=== PATIENT | male | born 1960 | race Caucasian/White ===

== ENCOUNTER 2017-04-27 16:26 | Emergency (ER) | payer OTHER ==
[2017-04-27 16:32] VITALS: BP 138/99
--- NOTE | 2017-04-27 16:33 | UC ---
Upper Extremity HPI - HPI Summary HPI Summary: 56 YEAR OLD MALE PRESENTS WITH COMPLAINS OF SEVERE RIGHT THUMB LACERATION EXTENDING INTO THE TENDON. I WILL SEND HIM TO THE ED. - History of Current Complaint Chief Complaint: UCLaceration Stated Complaint: THUMB INJURY Time Seen by Provider: 04/27/17 16:33 Hx Obtained From: Patient Onset/Duration: Sudden Onset Severity Initially: Moderate Severity Currently: Moderate Character: Throbbing Aggravating Factor(s): Movement - Allergies/Home Medications Allergies/Adverse Reactions: Allergies Allergy/AdvReac Type Severity Reaction Status Date / Time Penicillins Allergy Unknown Verified 04/27/17 17:20 Reaction Details Home Medications: Home Medications Gout Medication ? Name 04/27/17 [History] PMH/Surg Hx/FS Hx/Imm Hx Previously Healthy: Yes - Surgical History Surgical History: None - Family History Known Family History: Positive: None - Social History Alcohol Use: Occasionally Substance Use Type: None Smoking Status (MU): Never Smoked Tobacco Review of Systems Constitutional: Other - LACERATION OF RIGHT THUMB Skin: Negative Eyes: Negative ENT: Negative Respiratory: Negative Cardiovascular: Negative Gastrointestinal: Negative Genitourinary: Negative Motor: Negative Neurovascular: Negative Musculoskeletal: Negative Neurological: Negative Psychological: Negative All Other Systems Reviewed And Are Negative: Yes Physical Exam Triage Information Reviewed: Yes Vital Signs: Initial Vital Signs Temp 36.7 C 04/27/17 16:29 Pulse 100 04/27/17 16:29 Resp 18 04/27/17 16:29 BP 138/99 04/27/17 16:29 Pulse Ox 100 04/27/17 16:29 Eye Exam: Normal ENT Exam: Normal Dental Exam: Normal Neck exam: Normal Neck: Positive: 1 Respiratory Exam: Normal Cardiovascular Exam: Normal Abdominal Exam: Normal Musculoskeletal Exam: Normal Neurological Exam: Normal Psychological Exam: Normal Skin: Positive: Other - RIGHT THUMB LACERATION Upper Extremity Course/Dx - Differential Dx/Diagnosis Provider Diagnoses: RIGHT THUMB LACERATION Discharge - Discharge Plan Condition: Stable Disposition: HOME Patient Education Materials: Laceration (ED) Referrals: Tutu Hidalgo MD [Primary Care Provider] - Additional Instructions: PLEASE GO TO ER FOR RIGHT THUMB LACERATION.
== END 2017-04-27 17:06 | disposition home or self-care (01) ==
LOC: UCEAST 16:26
DX: S61.011A Laceration without foreign body of right thumb without damage to nail, initial encounter (principal); W45.8XXA Other foreign body or object entering through skin, initial encounter; Z88.0 Allergy status to penicillin
CPT/HCPCS: 99201; G0463

== ENCOUNTER 2017-04-27 17:17 | Emergency (ER) | payer OTHER ==
[2017-04-27] MEDS ORDERED: Lidocaine 1% MPF* 2 ML VIAL INJ ONE (20:23)
[2017-04-27] MEDS ORDERED: Lidocaine 1%* 5 ML VIAL ONE (20:24)
--- NOTE | 2017-04-27 20:55 | ED ---
Laceration/Wound HPI - HPI Summary HPI Summary: Patient presents to the ED from [facility] for laceration to the webbing of the thenar space of the left hand from a hose handle. Tetanus UTD x 6 years ago. Otherwise healthy. Full ROM without compromise. Pulses +2 bilaterally and cap refill < 2 sec. [facility] cleaned the area well per patient. He was irrigated with jet irrigation and soaked x 10 minutes in soap and water. Full ROM tested and no concern for tendon involvement. There is no erythema, warmth or tenderness to palpation around the laceration. The lac is irregular measuring 4.5cm. Bleeding is controlled and patient denies blood thinners. No numbness or tingling in the thumb. Pinprick test performed with no abnormalities. - History of Current Complaint Stated Complaint: CUT ON LT HAND-SENT FROM Time Seen by Provider: 04/27/17 18:43 Hx Obtained From: Patient Mechanism of Injury: Sharp/Blunt Trauma Onset/Duration: Sudden Onset Aggravating: Movement Alleviating: Compression Timing: Constant Onset Severity: Mild Current Severity: Mild Pain Intensity: 4 Pain Scale Used: 0-10 Numeric Associated Signs & Symptoms: Negative Related Hx: Dominant Hand (Right) - Additional Pertinent History Referred By: Other - [facility] - Allergy/Home Medications Allergies/Adverse Reactions: Allergies Allergy/AdvReac Type Severity Reaction Status Date / Time Penicillins Allergy Unknown Verified 04/27/17 17:20 Reaction Details PMH/Surg Hx/FS Hx/Imm Hx Previously Healthy: Yes - Immunization History Hx Pertussis Vaccination: No Immunizations Up to Date: Unable to Obtain/Confirm Infectious Disease History: No Infectious Disease History: Denies: Traveled Outside the [place] in Last 30 Days - Social History Occupation: Employed Full-time Lives: With Family Alcohol Use: Occasionally Hx Substance Use: No Substance Use Type: Reports: None Hx Tobacco Use: No Smoking Status (MU): Never Smoked Tobacco Review of Systems Constitutional: Negative Negative: Fever, Fatigue Eyes: Negative Cardiovascular: Negative Respiratory: Negative Genitourinary: Negative Positive: Arthralgia, Myalgia Positive: Other - 4.5cm laceration to the webbing of the thenar space of the left hand Negative: Weakness, Paresthesia Psychological: Normal All Other Systems Reviewed And Are Negative: Yes Physical Exam Triage Information Reviewed: Yes Vital Signs On Initial Exam: Initial Vitals Temp Pulse Resp BP Pulse Ox 98.1 F 94 16 134/97 100 04/27/17 17:20 04/27/17 17:20 04/27/17 17:20 04/27/17 17:20 04/27/17 17:20 Vital Signs Reviewed: Yes Appearance: Positive: Well-Appearing, Well-Nourished Skin: Positive: Warm, Skin Color Reflects Adequate Perfusion Head/Face: Positive: Normal Head/Face Inspection Eyes: Positive: EOMI, AWA, Conjunctiva Clear Respiratory/Lung Sounds: Positive: Clear to Auscultation, Breath Sounds Present Cardiovascular: Positive: RRR Musculoskeletal: Positive: Strength/ROM Intact Neurological: Positive: Speech Normal Psychiatric: Positive: Normal AVPU Assessment: Alert - [place] Coma Scale Best Eye Response: 4 - Spontaneous Best Motor Response: 6 - Obeys Commands Best Verbal Response: 5 - Oriented Diagnostics - Vital Signs Vital Signs Temp Pulse Resp BP Pulse Ox 04/27/17 18:53 98.4 F 85 16 171/98 100 04/27/17 17:20 98.1 F 94 16 134/97 100 - Laboratory Lab Statement: Any lab studies that have been ordered have been reviewed, and results considered in the medical decision making process. Laceration Repair Course/Dx - Course Course Of Treatment: Patient presents to the ED with 4.5 cm laceration to the webbing of the thenar space. Area is deep but without tendon involvement. Pinprick test, ROM test all WNL. Timeout obtained. Cleansed wound. Irrigated with 60CC's normal saline and soaked the wound for 10 minutes in soap and water. Tetanus UTD. Lidocaine without epi as local anesthetic - 3ml. 4-0 non- absorbable prolene. 7 sutures placed using simple interrupted technique. Patient tolerated well. Cleaned and dressed wound with telfa dressing. NV exam WNL. Sutures out in 7 days. Return precautions given. Patient OK with discharge. - Differential Dx Differental Diagnoses: Abrasion, Avulsion, Tendon Laceration - Clinical Impression Provider Diagnoses: Laceration Discharge - Discharge Plan Condition: Stable Disposition: HOME Patient Education Materials: Care For Your Stitches (ED) Referrals: Tutu Hidalgo MD [Primary Care Provider] - Additional Instructions: If you develop redness, streaks of red around the wound, swelling, abnormal drainage or you develop a fever - you need to come back to the ED right away. Suture removal in 7 days. Continue to keep covered x 24 hours, then leave open to air. Images - Images Hands: 1 - 4.5cm deep laceration to the webbing of the thenar spcae without tendon or bone involvement
[2017-04-27 20:59] VITALS: BP 155/87
== END 2017-04-27 21:00 | disposition home or self-care (01) ==
LOC: ED 17:17
DX: S61.412A Laceration without foreign body of left hand, initial encounter (principal); W45.8XXA Other foreign body or object entering through skin, initial encounter; Y93.89 Activity, other specified; Y92.89 Other specified places as the place of occurrence of the external cause
CPT/HCPCS: 12002; 96374; 99281